=== PATIENT | female | born 1990 | race Caucasian/White ===

== ENCOUNTER 2023-12-14 09:22 | Emergency (ER) | payer OTHER, SELFPAY ==
[2023-12-14 09:50] VITALS: BP 132/59; PULSE 90; RESP 20; TEMP 37.6; O2SAT 100
--- NOTE | 2023-12-14 10:04 | ED.URI ---
HPI - URI/Sore Throat General Chief Complaint: Upper Respiratory Infection Stated Complaint: Sore Throat/Ear Pain History of Present Illness HPI Narrative: pt is a 33 y/o female, presents to with 8 hour hx of bilateral ear pain and sore throat pain without associated fevers, rhinorrhea or cough. She has taken ApAP for pain with some relief. she notes her co workers have all been ill for the past 3 weeks and suspects she has been exposed to something at work. She denies any additional associated symptoms or modifying factors. she is not . Related Data Home Medications Medication Instructions Recorded Confirmed No Home Medications 12/14/23 12/14/23 Allergies Allergy/AdvReac Type Severity Reaction Status Date / Time No Known Allergies Allergy Verified 12/14/23 09:50 Review of Systems ENT: Comments: refer to HPI Exam Const: General: healthy appearing and no acute distress Nutritional Appearance: obese Orientation/consciousness: patient oriented x3 Limitations: no limitations HENMT: Head: normal to inspection Ears: external ears normal and TM abnormal retracted (slight serous pattern present, no purulence ) bilateral Face and sinus: normal facial exam and sinuses nontender Mouth: Yes Normal oral and palatal mucosa present, Yes lip normal and Yes moist mucous membranes Throat: posterior oropharynx normal and uvula midline Other: no erythema noted, no exudate, tonsils are 1+ bilaterally no trismus Eyes: Conjunctivae: conjunctivae normal Pupils: Equal, round and reactive pupils present EOM: EOMs intact bilaterally Neck: Neck: normal visual inspection, no lymphadenopathy and no meningeal signs Resp: Effort & Inspection: normal respiratory effort Auscultation: clear to auscultation bilaterally Cardio: Rate: regular rate Rhythm: regular rhythm Skin: General skin exam: normal color Rashes: no rashes Neuro: General: patient oriented x3, moves all extremities, no meningeal signs, no focal motor deficits and CN's II-XI intact bilaterally Course Course Emergency Course: pts exam is consistent with mild serous pattern and TM retraction, no pharyngeal abnormality noted, suspect viral versus allergic etiology, plan to treat with Flonase and Zyrtec as she declines short steroid course, FU with pCP in 3 days if symptoms are not improving. pt is agreeable with plan. Level of Care: Express Care Visit ([id number]) Vital Signs Vital signs: Vital Signs Temperature 37.6 C 12/14/23 09:50 Pulse Rate 90 12/14/23 09:50 Respiratory Rate 20 12/14/23 09:50 Blood Pressure 132/59 L 12/14/23 09:50 Pulse Oximetry 100 12/14/23 09:50 Oxygen Delivery Room Air 12/14/23 09:50 Temperature 37.6 C 12/14/23 09:50 Pulse Rate 90 12/14/23 09:50 Respiratory Rate 20 12/14/23 09:50 Blood Pressure 132/59 L 12/14/23 09:50 Pulse Oximetry 100 12/14/23 09:50 Oxygen Delivery Room Air 12/14/23 09:50 MDM - URI/Sore Throat MDM Narrative Medical decision making narrative: Flonase, Zyrtec, Cepacol lozenges OTC, lots of fluids, PCP FU in 3 days Differential Diagnosis Differential diagnosis: Likely upper respiratory infection, otitis media, viral infection and other (seasonal allergies, eustachian tube dysfunction) Discharge Plan Discharge Clinical Impression: Acute serous otitis media Qualifiers: Laterality: bilateral Recurrence: non-recurrent Qualified Code(s): H65.03 - Acute serous otitis media, bilateral Patient Disposition: Home, Self-Care Condition: Stable Instructions: Antibiotic Form, Fluid In The Ear (Serous Otitis Media) (ED) Additional Instructions: PUSH FLUIDS, REST, START DAILY ZYRTEC AND FLONASE DIRECTED OVER THE COUNTER. USE OVER THE COUNTER CEPACOL LOZENGES TO REDUCE SORE THROAT PAIN. YOU MAY CONTINUE TYLENOL AND MOTRIN DIRECTED OVER THE COUNTER FOR ADDED SYMPTOM RELIEF. SEE YOUR PRIMARY CARE PROVIDER IN 3-5 DAYS IF SYMPTOMS ARE NOT RESOLVING Prescript
== END 2023-12-14 10:13 | disposition home or self-care (01) ==
PROVIDERS: Emergency Provider Nurse Practitioner Family
DX: H65.03 Acute serous otitis media, bilateral (principal)
CPT/HCPCS: 99211; G0463